=== PATIENT | female | born 1990 | race Caucasian/White ===

== ENCOUNTER 2025-07-22 18:41 | Emergency (ER) | payer BC, SELFPAY ==
[~2025-07-22 18:41] MED LIST: Iopamidol 370 76% 100 ML VIAL ONE
[2025-07-22] MEDS ORDERED: Ketorolac Tromethamine 30 MG (1 mL) VIAL ONE (19:10)
[2025-07-22] MEDS ORDERED: Ondansetron PF 4 MG/2 ML Vial ONE (19:10)
[2025-07-22] MEDS ORDERED: Aspirin Chewable 81 MG TAB ONE (19:10)
[2025-07-22 19:40] LABS: #Basophils 0.2 thou/uL (0.0-0.2); #Eosinophils 0.1 thou/uL (0.0-0.7); #Lymphocytes 3.3 thou/uL (1.20-3.40); #Monocytes 0.5 thou/uL (0.11-0.59); #Neutrophils 7.1 thou/uL (1.40-6.50); %Basophils 1.6 % (0.0-1.0); %Eosinophils 1.0 % (0.0-10.0); %Lymphocytes 29.3 % (21.0-51.0); %Monocytes 4.6 % (0.0-10.0); %Neutrophils 63.5 % (42.0-75.0); Hematocrit 40.0 % (36.0-47.0); Hemoglobin 13.2 g/dL (12.0-16.0); Mean Corpuscular Hemoglobin 26.8 pg (27.0-31.0); Mean Corpuscular Volume 81.1 fl (78.0-98.0); Platelet Count 375 10x3/uL (130-400); Red Blood Cell (RBC) Count 4.93 mill/uL (4.20-5.40); White Blood Cell (WBC) Count 11.1 10x3/uL (4.8-10.8)
[2025-07-22 19:54] LABS: ALT (SGPT) 11 U/L (Less than 34); AST (SGOT) 15 U/L (11-34); Albumin 3.9 g/dL (3.1-4.5); Alkaline Phosphatase 101 U/L (40-110); Anion Gap 14 mmol/L (10-20); BUN (Urea Nitrogen) 9 mg/dL (7.0-18.7); Bilirubin, Total 0.2 mg/dL (0.3-1.2); Calc. Creatinine Clearance 0 mL/min (70-130); Calcium 9.1 mg/dL (7.8-10.44); Carbon Dioxide 24 mmol/L (22-29); Chloride 107 mmol/L (98-107); Globulin 2.6 g/dL (2.4-3.5); Glucose 93 mg/dL (70-105); Potassium 3.8 mmol/L (3.5-5.1); Sodium 141 mmol/L (136-145)
[2025-07-22 19:58] LABS: Troponin I Less than 0.010 ng/mL (< 0.028)
[2025-07-22 20:03] LABS: BHCG - Serum Negative (NEGATIVE); Pregs Control Bar Appear? YES (CONTROL BAR)
[2025-07-22] MEDS ORDERED: Lidocaine Viscous Sol 2% 15 ml UD Cup ONE (20:26)
[2025-07-22] MEDS ORDERED: Mag-Al Plus 1200/1200/120 MG (30 mL) UDCUP ONE (20:26)
[2025-07-22] MEDS ORDERED: Sucralfate 1 GM TAB ONE (21:36)
== END 2025-07-22 22:15 | disposition home or self-care (01) ==
LOC: NAV ERS 18:41
DX: M94.0 Chondrocostal junction syndrome [Tietze] (principal); K20.90 Esophagitis, unspecified without bleeding
CPT/HCPCS: 71046; 71275; 80053; 84484; 84703; 85025; 85379; 93005; 94760; 96374; 96375; J1885; J2270; J2405; Q9967